=== PATIENT | female | born 1995 | race Hispanic/Latino ===

== ENCOUNTER 2019-02-12 22:39 | Emergency (ER) | payer MEDICARE, OTHER ==
[~2019-02-12] VITALS: Ht 160 cm; Wt 52.2 kg
--- OUTSIDE RECORDS SUMMARY | 2019-02-12 22:43 | XMS REPORT ---
Author Author [facility] Address Unknown Phone Unavailable Care Team Providers Care Public Health Aides Teacher Name Role Phone Unavailable Unavailable Payers Payer Name Policy Type Policy Number Effective Date Expiration Date Problems This patient has no known problems. Allergies, Adverse Reactions, Alerts Allergy Name Allergy Type Status Severity Reaction(s) Onset Date Inactive Date Treating Clinician Comments No Known Allergies DA Active U 2018-12-11 00:00:00 No Known Allergies DA Active U 2015-10-25 00:00:00 Medications This patient has no known medications. Results Test Description Test Time Test Comments Text Results Atomic Results Result Comments PLACENTA 2018-12-20 13:40:00 RUN DATE: 12/20/18 [facility] PAGE 1 RUN TIME: 1340 Specimen Inquiry RUN USER: INTERFACE PATIENT: DIANA GÓMEZ LOC: [facility] U #: [id number] AGE/SX: 23/F ROOM: DEISY RE12/14/18[facility] DR: Victorina Bates MD : 97 BED: A DIS: 12/15/18 STATUS: DIS Bong TLOC: SPEC #: [id number] RECD: 12/16/18 STATUS: SOUT RE #: [id number] ODILIA: 12/15/[address] [facility] [address]: Victorina Bates MD ENTERED: 12/16/18 SP TYPE: PLACENTA OTHR DR: ORDERED: GROSS PROCEDURES: GROSS (12/20/18) TISSUES: PLACENTA, NOS - AND PRODUCTS OF CONCEPTION CLINICAL HISTORY COLLECTION DATE: 12/15/2018 INTRAUTERINE DEMISE AT 18.4 WEEKS FINAL DIAGNOSIS Placenta and fetus, delivery: IMMATURE FETUS WITH AMBIGUOUS EXTERNAL GENITALIA AND MARKED POST MORTEM CHANGE/COMPRESSION APPROXIMATELY 14-15 WEEKS ESTIMATED GESTATIONAL AGE BY MEASUREMENTS 18.4 WEEKS ESTIMATED GESTATIONAL AGE BE DATES SECOND TRIMESTER PLACENTA WITH NO VILLITIS OR INFARCTION ARTIFACTUAL CHANGE AT SURFACE SUGGESTIVE OF CHORIOAMNIONITIS MEMBRANES WITH ARTIFACTUAL CHANGE SUGGESTIVE OF CHORIOAMNIONITIS UMBILICAL CORD WITH ACUTE INFLAMMATION AT SURFACE, POSSIBLE POST MORTEM CHANGE NEGATIVE FOR MALIGNANCY RRB/clarence D [id number], [id number] MACROSCOPIC The specimen is received without fixative in a container labeled with the patient's name and medical record number. Formalin is added. The specimen consists of a placenta with distorted fetus attached by umbilical cord. The placental portion measures 8 by up to 6.5 cm in diameter with a thickness up to 3.0 cm in trimmed weight of 109 grams. The remaining membrane tissue is pryor, opaque and inserts marginally. The surface is pryor and opaque in appearance. A segment of umbilical cord measuring 20.5 cm in length with a diameter up to 0.3 cm attaches between the surface of the placenta and the abdomen of the fetus. No knots are present within the cord. The cord is flattened. This appears to be post mortem change. No tight constrictions are CONTINUED ON NEXT PAGE RUN DATE: 12/20/18 [facility] PAGE 2 RUN TIME: 1340 Specimen Inquiry RUN USER: INTERFACE SPEC #: [id number] PATIENT: DIANA GÓMEZ #[id number] (Continued) MACROSCOPIC (Continued) identified within the cord segment. Hemorrhagic material attaches loosely to the maternal surface of the placenta. The maternal surface appears to be intact. The cut surface of the placenta is pink to pink-pryor and spongy with no focal lesions. The fetus is compressed and distorted related to post mortem change. The skull and abdomen are flattened. The fetus has a crown rump length of approximately 9 cm and foot length of 1.5 cm. The skin of the fetus is diffusely street-pryor and dull. Five digits are identified on each hand and foot. It is not possible to state with certainty that the face is normally formed due to the degree of compression. The external genitalia are difficult to see and are ambiguous in appearance. No obvious lesion is seen along the spine or the abdominal wall. No sections of the fetus are submitted. Section Code: 1A-1C, construction representative sections of placenta. GROSS PERFORMED AT [facility] [address] [place] [address] [phone] MICROSCOPIC All of the stains, including any controls performed, stain appropriately. MICROSCOPIC PERFORMED AT [facility] [address] [place] [address] [phone])[phone] PERFORMING SITE Diagnosis performed at: [facility], [address] [place] [address] Signed SIGNATURE ON FILE Zack Lyn MD 12/20/18 1340 END OF REPORT CBC W/AUTO DIFF 2018-12-15 11:57:00 WHITE BLOOD CELL (test code=WBC) 10.4 K/mm3 4.5-12.5 RED BLOOD CELL (test code=RBC) 2.13 mill/mm3 3.7-5.2 HEMOGLOBIN (test code=HGB) 7.0 gram/dL 11.5-15.5 RESULT VERIFIED BY REPEAT ANALYSIS HEMATOCRIT (test code=HCT) 21.5 % 36.0-46.0 Results called to [id number] by ETHAN 12/15/18 1156Critical results verified and read back by Nurse? Y MEAN CELL VOLUME (test code=MCV) 100.9 fL 80-98 MEAN CELL HGB (test code=MCH) 32.9 picogram 27.0-33.0 MEAN CELL HGB CONCETRATION (test code=MCHC) 32.6 gram/dL 33.0-36.0 RED CELL DISTRIBUTION WIDTH (test code=RDW) 13.0 % 11.6-16.2 RED CELL DISTRIBUTION WIDTH SD (test code=RDW-SD) 47.8 fL 37.0-51.0 PLATELET COUNT (test code=PLT) 227 K/mm3 150-450 RESULT VERIFIED BY REPEAT ANALYSIS MEAN PLATELET VOLUME (test code=MPV) 10.6 fL 6.7-11.0 NEUTROPHIL % (test code=NT%) 81.1 % 39.0-69.0 IMMATURE GRANULOCYTE % (test code=IG%) 0.6 % 0.0-5.0 LYMPHOCYTE % (test code=LY%) 13.0 % 25.0-55.0 MONOCYTE % (test code=MO%) 5.0 % 0.0-10.0 EOSINOPHIL % (test code=EO%) 0.1 % 0.0-5.0 BASOPHIL % (test code=BA%) 0.2 % 0.0-1.0 NUCLEATED RBC % (test code=NRBC%) 0.0 % 0-0 NEUTROPHIL # (test code=NT#) 8.46 K/mm3 1.8-7.7 IMMATURE GRANULOCYTE # (test code=IG#) 0.06 x10 3/uL 0-0.03 LYMPHOCYTE # (test code=LY#) 1.36 K/mm3 1.0-5.0 MONOCYTE # (test code=MO#) 0.52 K/mm3 0-0.8 EOSINOPHIL # (test code=EO#) 0.01 K/mm3 0.0-0.5 BASOPHIL # (test code=BA#) 0.02 K/mm3 0.0-0.2 NUCLEATED RBC # (test code=NRBC#) 0.00 K/mm3 0.0-0.1 AG HEPAT B [id number] 03:48:00* Test Item Value Reference Range Comments AG HEPAT B SURF (test code=HBSAG) Nonreactive Index Nonreactive AB RUBELLA [id number] 03:48:00* Test Item Value Reference Range Comments AB RUBELLA IGG (test code=RUBGAB) Positive IUnit/mL <5.0=Neg IU/ML INTERPRETATION OF SERUM RUBELLA-IGG AB --------- < 5.0 NEGATIVE - NO RUBELLA IGG ANTIBODY DETECTED5.0-9.9 EQUIVOCAL>=10.0 POSITIVE - RUBELLA IGG ANTIBODY DETECTED AB [id number] 03:48:00* Test Item Value Reference Range Comments AB TREPONEMA (test code=TREPAB) Nonreactive Index NonReactive HIV 1 2 COMBO AG/AB [id number] 03:48:00* Test Item Value Reference Range Comments HIV 1 2 COMBO AG/AB SCREEN (test code=[id number]) AB/AG NON REACTIVE NONREACTIVE NONREACTIVE HIV P24 ANTIGEN NONREACTIVE NONREACTIVE HIV 1&2 ANTIBODY NONREACTIVE THE HIV-1 P24 TEST HELPS DISTINGUISH ACUTE HIV- 1INFECTIONFROM ESTABLISHED HIV-1 INFECTION WHEN THE SPECIMEN ISPOSITIVE FOR HIV- 1 P24 ANTIGEN. HIV-1 P24 ANTIGEN IS HIGHEST IN THE FIRST FEW WEEKS AFTERINFECTION AG HEPAT B [id number] 20:51:00* Test Item Value Reference Range Comments AG HEPAT B SURF (test code=HBSAG) Nonreactive Index Nonreactive AB RUBELLA [id number] 20:51:00* Test Item Value Reference Range Comments AB RUBELLA IGG (test code=RUBGAB) Positive IUnit/mL <5.0=Neg IU/ML INTERPRETATION OF SERUM RUBELLA-IGG AB --------- < 5.0 NEGATIVE - NO RUBELLA IGG ANTIBODY DETECTED5.0-9.9 EQUIVOCAL>=10.0 POSITIVE - RUBELLA IGG ANTIBODY DETECTED AB [id number] 20:51:00* Test Item Value Reference Range Comments AB TREPONEMA (test code=TREPAB) Nonreactive Index NonReactive HIV 1 2 COMBO AG/AB [id number] 20:51:00* Test Item Value Reference Range Comments HIV 1 2 COMBO AG/AB SCREEN (test code=[id number]) NONREACTIVE URINALYSIS [id number] 20:50:00* Test Item Value Reference Range Comments UA COLOR (test code=COLU) BLOODY YELLOW UA APPEARANCE (test code=APPU) BLOODY CLEAR UA GLUCOSE DIPSTICK (test code=DGLUU) NEGATIVE mg/dL NEGATIVE UA BILIRUBIN DIPSTICK (test code=BILU) NEGATIVE NEGATIVE UA KETONE DIPSTICK (test code=KETU) 150 (4+) mg/dL NEGATIVE UA SPECIFIC GRAVITY (test code=SGU) 1.020 1.001-1.035 UA BLOOD DIPSTICK (test code=CHAZ) 3+ (Large) NEGATIVE UA PH DIPSTICK (test code=WALKER) 6.5 5.0-8.0 UA PROTEIN DIPSTICK (test code=PROU) >=300 (3+) mg/dL Neg-15 UA UROBILINIOGEN DIPSTICK (test code=URO) 1 mg/dL (1+) mg/dL 0.0-0.2 UA NITRITE DIPSTICK (test code=JUS) NEGATIVE NEGATIVE Previously reported result: POSITIVE Edited by: CHELE on 12/14/18:204 UA LEUKOCYTE ESTERASE W REFLEX (test code=LEUUR) 2+ NEGATIVE UA WBC (test code=WBCU) 0-5 per HPF 0-5 UA RBC (test code=RBCU) TNTC per HPF 0-5 UA EPITHELIAL CELLS (test code=EPIU) None seen per HPF Few UA BACTERIA (test code=BACU) TRACE per HPF NONE COMPREHENSIVE METABOLIC [id number] 20:30:00* Test Item Value Reference Range Comments SODIUM (test code=NA) 139 mmol/L 136-145 POTASSIUM (test code=K) 3.1 mmol/L 3.5-5.1 CHLORIDE (test code=CL) 106.0 mmol/L 98-107 CARBON DIOXIDE (test code=CO2) 25.0 mmol/L 21-32 ANION GAP (test code=GAP) 11.1 10-20 GLUCOSE (test code=GLU) 111 mg/dL 74-106 BLOOD UREA NITROGEN (test code=BUN) 6 mg/dL 7-18 GLOMERULAR FILTRATION RATE (test code=GFR) > 60 mL/min >=60 Estimated GFR by using Modified MDRD formula.Chronic kidney disease is defined as either kidney damageor GFR <60 mL/min/1.73 m2 for >3 months. CREATININE (test code=CREAT) 0.50 mg/dL 0.55-1.02 Note change in reference range due to change in reagent. BUN/CREATININE RATIO (test code=BUN/CREA) 12.4 10-20 TOTAL PROTEIN (test code=PROT) 6.6 gram/dL 6.4-8.2 ALBUMIN (test code=ALB) 3.0 g/dL 3.4-5.0 GLOBULIN (test code=GLOB) 3.6 gram/dL 2.7-4.2 ALBUMIN/GLOBULIN RATIO (test code=A/G) 0.8 0.75-1.50 CALCIUM (test code=CA) 8.6 mg/dL 8.5-10.1 BILIRUBIN TOTAL (test code=BILT) 0.20 mg/dL 0.0-1.0 SGOT/AST (test code=AST) 9 IUnit/L 15-37 SGPT/ALT (test code=ALT) 8 IUnit/L 12-78 ALKALINE PHOSPHATASE TOTAL (test code=ALKP) 67 IUnit/L 45-117 Note change in reference range due to change in reagent. URINALYSIS [id number] 20:29:00* Test Item Value Reference Range Comments UA COLOR (test code=COLU) BLOODY YELLOW UA APPEARANCE (test code=APPU) BLOODY CLEAR UA GLUCOSE DIPSTICK (test code=DGLUU) NEGATIVE mg/dL NEGATIVE UA BILIRUBIN DIPSTICK (test code=BILU) NEGATIVE NEGATIVE UA KETONE DIPSTICK (test code=KETU) 150 (4+) mg/dL NEGATIVE UA SPECIFIC GRAVITY (test code=SGU) 1.020 1.001-1.035 UA BLOOD DIPSTICK (test code=CHAZ) 3+ (Large) NEGATIVE UA PH DIPSTICK (test code=WALKER) 6.5 5.0-8.0 UA PROTEIN DIPSTICK (test code=PROU) >=300 (3+) mg/dL Neg-15 UA UROBILINIOGEN DIPSTICK (test code=URO) 1 mg/dL (1+) mg/dL 0.0-0.2 UA NITRITE DIPSTICK (test code=JUS) POSITIVE NEGATIVE UA LEUKOCYTE ESTERASE W REFLEX (test code=LEUUR) 2+ NEGATIVE UA WBC (test code=WBCU) per HPF 0-5 UA RBC (test code=RBCU) per HPF 0-5 UA EPITHELIAL CELLS (test code=EPIU) per HPF Few UA BACTERIA (test code=BACU) per HPF NONE URINALYSIS [id number] 20:28:00* Test Item Value Reference Range Comments UA COLOR (test code=COLU) BLOODY YELLOW UA APPEARANCE (test code=APPU) BLOODY CLEAR UA GLUCOSE DIPSTICK (test code=DGLUU) NEGATIVE mg/dL NEGATIVE UA BILIRUBIN DIPSTICK (test code=BILU) NEGATIVE NEGATIVE UA KETONE DIPSTICK (test code=KETU) 150 (4+) mg/dL NEGATIVE UA SPECIFIC GRAVITY (test code=SGU) 1.020 1.001-1.035 UA BLOOD DIPSTICK (test code=CHAZ) 3+ (Large) NEGATIVE UA PH DIPSTICK (test code=WALKER) 6.5 5.0-8.0 UA PROTEIN DIPSTICK (test code=PROU) >=300 (3+) mg/dL Neg-15 UA UROBILINIOGEN DIPSTICK (test code=URO) 1 mg/dL (1+) mg/dL 0.0-0.2 UA NITRITE DIPSTICK (test code=JUS) POSITIVE NEGATIVE UA LEUKOCYTE ESTERASE W REFLEX (test code=LEUUR) 2+ NEGATIVE UA WBC (test code=WBCU) per HPF 0-5 UA RBC (test code=RBCU) per HPF 0-5 UA EPITHELIAL CELLS (test code=EPIU) per HPF Few UA BACTERIA (test code=BACU) per HPF NONE COMPREHENSIVE METABOLIC [id number] 20:26:00* Test Item Value Reference Range Comments SODIUM (test code=NA) 139 mmol/L 136-145 POTASSIUM (test code=K) 3.1 mmol/L 3.5-5.1 CHLORIDE (test code=CL) 106.0 mmol/L 98-107 CARBON DIOXIDE (test code=CO2) mmol/L 21-32 ANION GAP (test code=GAP) 10-20 GLUCOSE (test code=GLU) mg/dL 74-106 BLOOD UREA NITROGEN (test code=BUN) mg/dL 7-18 GLOMERULAR FILTRATION RATE (test code=GFR) mL/min >=60 CREATININE (test code=CREAT) mg/dL 0.55-1.02 BUN/CREATININE RATIO (test code=BUN/CREA) 10-20 TOTAL PROTEIN (test code=PROT) gram/dL 6.4-8.2 ALBUMIN (test code=ALB) g/dL 3.4-5.0 GLOBULIN (test code=GLOB) gram/dL 2.7-4.2 ALBUMIN/GLOBULIN RATIO (test code=A/G) 0.75-1.50 CALCIUM (test code=CA) mg/dL 8.5-10.1 BILIRUBIN TOTAL (test code=BILT) mg/dL 0.0-1.0 SGOT/AST (test code=AST) IUnit/L 15-37 SGPT/ALT (test code=ALT) IUnit/L 12-78 ALKALINE PHOSPHATASE TOTAL (test code=ALKP) IUnit/L 45-117 CBC W/AUTO [id number] 20:14:00* Test Item Value Reference Range Comments WHITE BLOOD CELL (test code=WBC) 20.4 K/mm3 4.5-12.5 RED BLOOD CELL (test code=RBC) 2.75 mill/mm3 3.7-5.2 HEMOGLOBIN (test code=HGB) 9.0 gram/dL 11.5-15.5 HEMATOCRIT (test code=HCT) 27.2 % 36.0-46.0 MEAN CELL VOLUME (test code=MCV) 98.9 fL 80-98 MEAN CELL HGB (test code=MCH) 32.7 picogram 27.0-33.0 MEAN CELL HGB CONCETRATION (test code=MCHC) 33.1 gram/dL 33.0-36.0 RED CELL DISTRIBUTION WIDTH (test code=RDW) 12.8 % 11.6-16.2 RED CELL DISTRIBUTION WIDTH SD (test code=RDW-SD) 46.1 fL 37.0-51.0 PLATELET COUNT (test code=PLT) 314 K/mm3 150-450 MEAN PLATELET VOLUME (test code=MPV) 10.7 fL 6.7-11.0 NEUTROPHIL % (test code=NT%) 87.1 % 39.0-69.0 IMMATURE GRANULOCYTE % (test code=IG%) 1.1 % 0.0-5.0 LYMPHOCYTE % (test code=LY%) 8.3 % 25.0-55.0 MONOCYTE % (test code=MO%) 3.3 % 0.0-10.0 EOSINOPHIL % (test code=EO%) 0.0 % 0.0-5.0 BASOPHIL % (test code=BA%) 0.2 % 0.0-1.0 NUCLEATED RBC % (test code=NRBC%) 0.0 % 0-0 NEUTROPHIL # (test code=NT#) 17.72 K/mm3 1.8-7.7 IMMATURE GRANULOCYTE # (test code=IG#) 0.23 x10 3/uL 0-0.03 LYMPHOCYTE # (test code=LY#) 1.69 K/mm3 1.0-5.0 MONOCYTE # (test code=MO#) 0.68 K/mm3 0-0.8 EOSINOPHIL # (test code=EO#) 0.01 K/mm3 0.0-0.5 BASOPHIL # (test code=BA#) 0.05 K/mm3 0.0-0.2 NUCLEATED RBC # (test code=NRBC#) 0.00 K/mm3 0.0-0.1 MANUAL DIFF REQUIRED (test code=MDIFF) NO - US [id number] 19:15:00 Name: DIANA GÓMEZ [facility] : 1995 Age/S: 23 / F [address] [facility] Unit #: [id number] Loc: [place] [address] Phys: Victorina Bates MD Acct: [id number] Dis Date: Status: ADM IN PHONE #: [phone] Exam Date: 12/14/2018 1840 FAX #: [phone] Reason: HEART TONES EXAMS: CPT CODE: [id number] [place] LTD [id number] REASON FOR EXAM: HEART TONES EXAM ORDER DATE: 12/14/2018 6:13 PM Attending M.D.: Victorina Bates MD PROCEDURE: - US LTD FINDINGS: A nonviable IUP noted. Fetus is in breech presentation with the head and the lower uterine segment and the body and spine at the cervix region. No heart tone detected. No amniotic fluid noted. IMPRESSION: A single nonviable IUP with body and spine locate at the cervix. at 1915 Reported and signed by: Darinel Rivera M.D. CC: Victorina Bates MD Technologist: MARINO HATCH RT(R),RDMS Trnhib Date/Time: 12/14/2018 (1914) [email or web address] Orig Print D/T: S: 12/14/2018 (1917) Probe: PAGE 1 Signed Report URINALYSIS [id number] 09:04:00* Test Item Value Reference Range Comments UA COLOR (test code=COLU) Light-Yellow YELLOW UA APPEARANCE (test code=APPU) CLEAR CLEAR UA GLUCOSE DIPSTICK (test code=DGLUU) NEGATIVE mg/dL NEGATIVE UA BILIRUBIN DIPSTICK (test code=BILU) NEGATIVE mg/dL NEGATIVE UA KETONE DIPSTICK (test code=KETU) NEGATIVE mg/dL NEGATIVE UA SPECIFIC GRAVITY (test code=SGU) 1.019 1.001-1.035 UA BLOOD DIPSTICK (test code=CHAZ) 0.5 mg/dL (2+) mg/dL NEGATIVE UA PH DIPSTICK (test code=WALKER) 6.0 5.0-8.0 UA PROTEIN DIPSTICK (test code=PROU) NEGATIVE mg/dL NEGATIVE UA UROBILINIOGEN DIPSTICK (test code=URO) Normal mg/dL NEGATIVE UA NITRITE DIPSTICK (test code=JUS) NEGATIVE NEGATIVE UA LEUKOCYTE ESTERASE W REFLEX (test code=LEUUR) NEGATIVE Jeanie/uL NEGATIVE UA WBC (test code=WBCU) 0-5 per HPF 0-5 UA RBC (test code=RBCU) 21-50 #/HPF 0-5 UA EPITHELIAL CELLS (test code=EPIU) FEW per HPF FEW UA BACTERIA (test code=BACU) FEW #/HPF NONE UA MUCUS (test code=MUCU) FEW #/LPF FEW Urine Source? Clean CatchBASIC METABOLIC [id number] 08:52:00* Test Item Value Reference Range Comments SODIUM (test code=NA) 139 mmol/L 136-145 POTASSIUM (test code=K) 3.3 mmol/L 3.5-5.1 CHLORIDE (test code=CL) 105.0 mmol/L 98-107 CARBON DIOXIDE (test code=CO2) 25.0 mmol/L 21-32 ANION GAP (test code=GAP) 12.3 10-20 GLUCOSE (test code=GLU) 100 mg/dL 74-106 BLOOD UREA NITROGEN (test code=BUN) 7 mg/dL 7-18 GLOMERULAR FILTRATION RATE (test code=GFR) > 60 mL/min >=60 Estimated GFR by using Modified MDRD formula.Chronic kidney disease is defined as either kidney damageor GFR <60 mL/min/1.73 m2 for >3 months. CREATININE (test code=CREAT) 0.60 mg/dL 0.55-1.02 Note change in reference range due to change in reagent. BUN/CREATININE RATIO (test code=BUN/CREA) 12.3 10-20 CALCIUM (test code=CA) 9.0 mg/dL 8.5-10.1 HCG SERUM [id number] 08:52:00* Test Item Value Reference Range Comments HCG SERUM BETA (test code=HCG) 1827.0 mIU/mL 0-3 Interfering substances present in the serum of somepatients may cause a false-positive result in this assay.Questionable elevations in serum hCG should be confirmedwith a urine hCG. Suspected Trophoblastic Neoplasms shouldnot be diagnosed based on serun hCG/beta hCG alone. Theymust be confirmed by clinical history and tissue diagnosis.INTERPRETATION:B-HCG LEVELS <5 SHOULD BE CONSIDERED "NEGATIVE." *WHEN BODERLINE RESULTS ARE ENCOUNTERED,PATIENT SAMPLESSHOULD BE REDRAWN 48 HOURS. 0-1 WEEKS AFTER CONCEPTION 5-50 MIU/ML1-2 WEEKS AFTER CONCEPTION 50-500 MIU/ML2-3 WEEKS AFTER CONCEPTION 100 -5,000 MIU/ML3-4 WEEKS AFTER CONCEPTION 500-10,000 MIU/ML4-5 WEEKS AFTER CONCEPTION 1000 -50,000 MIU/ML5-6 WEEKS AFTER CONCEPTION 10,000-100,000 MIU/ML6-8 WEEKS AFTER CONCEPTION 15,000- 200,000 MIU/ML2-3 MONTHS AFTER CONCEPTION 10,000-100,000 MIU/ML BASIC METABOLIC [id number] 08:29:00* Test Item Value Reference Range Comments SODIUM (test code=NA) 139 mmol/L 136-145 POTASSIUM (test code=K) 3.3 mmol/L 3.5-5.1 CHLORIDE (test code=CL) 105.0 mmol/L 98-107 CARBON DIOXIDE (test code=CO2) mmol/L 21-32 ANION GAP (test code=GAP) 10-20 GLUCOSE (test code=GLU) mg/dL 74-106 BLOOD UREA NITROGEN (test code=BUN) mg/dL 7-18 GLOMERULAR FILTRATION RATE (test code=GFR) mL/min >=60 CREATININE (test code=CREAT) mg/dL 0.55-1.02 BUN/CREATININE RATIO (test code=BUN/CREA) 10-20 CALCIUM (test code=CA) mg/dL 8.5-10.1 HCG SERUM [id number] 08:29:00* Test Item Value Reference Range Comments HCG SERUM BETA (test code=HCG) mIU/mL 0-3 CBC W/O [id number] 08:11:00* Test Item Value Reference Range Comments WHITE BLOOD CELL (test code=WBC) 12.5 K/mm3 4.5-12.5 RED BLOOD CELL (test code=RBC) 3.30 mill/mm3 3.7-5.2 HEMOGLOBIN (test code=HGB) 10.6 gram/dL 11.5-15.5 HEMATOCRIT (test code=HCT) 32.8 % 36.0-46.0 MEAN CELL VOLUME (test code=MCV) 99.4 fL 80-98 MEAN CELL HGB (test code=MCH) 32.1 picogram 27.0-33.0 MEAN CELL HGB CONCETRATION (test code=MCHC) 32.3 gram/dL 33.0-36.0 RED CELL DISTRIBUTION WIDTH (test code=RDW) 13.1 % 11.6-16.2 PLATELET COUNT (test code=PLT) 372 K/mm3 150-450 MEAN PLATELET VOLUME (test code=MPV) 10.8 fL 6.7-11.0 URINALYSIS [id number] 15:52:00* Test Item Value Reference Range Comments UA COLOR (test code=COLU) YELLOW YELLOW UA APPEARANCE (test code=APPU) CLEAR CLEAR UA GLUCOSE DIPSTICK (test code=DGLUU) NEGATIVE mg/dL NEGATIVE UA BILIRUBIN DIPSTICK (test code=BILU) NEGATIVE NEGATIVE UA KETONE DIPSTICK (test code=KETU) 3+ mg/dL NEGATIVE UA SPECIFIC GRAVITY (test code=SGU) 1.025 1.001-1.035 UA BLOOD DIPSTICK (test code=CHAZ) TRACE NEGATIVE UA PH DIPSTICK (test code=WALKER) 6.0 5.0-8.0 UA PROTEIN DIPSTICK (test code=PROU) TRACE (15) mg/dL Neg-15 UA UROBILINIOGEN DIPSTICK (test code=URO) 0.2 mg/dL 0.0-0.2 UA NITRITE DIPSTICK (test code=JUS) NEGATIVE NEGATIVE UA LEUKOCYTE ESTERASE W REFLEX (test code=LEUUR) NEGATIVE NEGATIVE UA WBC (test code=WBCU) per HPF 0-5 UA RBC (test code=RBCU) per HPF 0-5 UA EPITHELIAL CELLS (test code=EPIU) per HPF Few UA BACTERIA (test code=BACU) per HPF NONE Urine Source? Clean CatchURINALYSIS [id number] 15:52:00* Test Item Value Reference Range Comments UA COLOR (test code=COLU) YELLOW YELLOW UA APPEARANCE (test code=APPU) CLEAR CLEAR UA GLUCOSE DIPSTICK (test code=DGLUU) NEGATIVE mg/dL NEGATIVE UA BILIRUBIN DIPSTICK (test code=BILU) NEGATIVE NEGATIVE UA KETONE DIPSTICK (test code=KETU) 3+ mg/dL NEGATIVE UA SPECIFIC GRAVITY (test code=SGU) 1.025 1.001-1.035 UA BLOOD DIPSTICK (test code=CHAZ) TRACE NEGATIVE UA PH DIPSTICK (test code=WALKER) 6.0 5.0-8.0 UA PROTEIN DIPSTICK (test code=PROU) TRACE (15) mg/dL Neg-15 UA UROBILINIOGEN DIPSTICK (test code=URO) 0.2 mg/dL 0.0-0.2 UA NITRITE DIPSTICK (test code=JUS) NEGATIVE NEGATIVE UA LEUKOCYTE ESTERASE W REFLEX (test code=LEUUR) NEGATIVE NEGATIVE UA WBC (test code=WBCU) 0-5 per HPF 0-5 UA RBC (test code=RBCU) 3-5 #/HPF 0-5 UA EPITHELIAL CELLS (test code=EPIU) FEW per HPF FEW UA BACTERIA (test code=BACU) NONE SEEN #/HPF NONE UA MUCUS (test code=MUCU) MANY #/LPF FEW Urine Source? Clean Catch- US PREG AFTER [id number] 15:38:00 Name: DIANA GÓMEZ [facility] : 1995 Age/S: 23 / F [address] Unit #: [id number] Loc: [place] [id number] Phys: Emma Condon NP Acct: [id number] Di s Date: Status: REG ER PHONE #: Exam Date: 11/13/2018 1455 FAX #: Reason: VAGINAL BLEEDING/PELVIC PAIN EXAMS: CPT CODE: [id number] US PREG AFTER 37510 REASON FOR EXAM: PELVIC P AIN EXAM ORDER DATE: 11/13/2018 1:50 PM Attending M.D .: Jennifer Condon NP PROCEDURE: - DUP AB/PEL/SC COMP, - US PREG AF TER TRI Technique: Grayscale images of the uterus and ovaries were obtained utilizing A transabdominal and transvaginal approach. Color Doppler and spectral Doppler images of the ovaries were also obtain ed on transvaginal images. Comparison study:None FIN DINGS: The transabdominal ultrasound shows the uterus measured 11 .5 x 10.9 x 11.7 cm. Intrauterine is present. Feta l crown-rump length measures 7.68 cm corresponding to an age of 13 weeks a nd 5 days. heart rate measures 144 bpm. No subchorionic hemorrhages seen. The right ovary was not clearly visualized. The left o vary measured 3.5 x 2.0 x 3.0 cm. The left ovary is sonographically unrema rkable and demonstrates normal flow. No fluid seen in the cul-de-s ac. IMPRESSION: Viable intrauterine with estimated gestational age of 13 weeks and 5 days. Elect ronically Signed by Markie Burr MD on 11/13/2018 at 1538 Reported and signed by: Markie Burr MD CC: Jennifer Condon NP Technologist: MOISES CASTLE Trnscb Date/Time: 11/13/2018 (1538) [id number] Orig Print D/T: S: 11/13/2018 (3553) Probe: PAGE 1 Signed Report - DUP AB/PEL/SC [id number] 15:38:00 Name: DIANA GÓMEZ [facility] : 1995 Age/S: 23 / F [facility] Unit #: [id number] Loc: [place] [id number] Phys: Jennifer Condon NP Acct: [id number] Dis Date: Status: REG ER PHONE #: [phone] Exam Date: 11/13/2018 0081 FAX #: [phone] Reason: PELVIC PAIN EXAMS: CPT CODE: [id number] DUP AB/PEL/SC COMP [id number] REASON FOR EXAM: PELVIC PAIN EXAM ORDER DATE: 11/13/2018 1:50 PM Attending MKermitDKermit: Jennifer Condon NP PROCEDURE: - DUP AB/PEL/SC COMP, - US PREG AFTER 1ST TRI Technique: Grayscale images of the uterus and ovaries were obtained utilizing A transabdominal and transvaginal approach. Color Doppler and spectral Doppler images of the ovaries were also obtained on transvaginal images. Comparison study:None FINDINGS: The transabdominal ultrasound shows the uterus measured 11.5 x 10.9 x 11.7 cm. Intrauterine is present. crown-rump length measures 7.68 cm corresponding to an age of 13 weeks and 5 days. heart rate measures 144 bpm. No subchorionic hemorrhages seen. The right ovary was not clearly visualized. The left ovary measured 3.5 x 2.0 x 3.0 cm. The left ovary is sonographically unremarkable and demonstrates normal flow. No fluid seen in the cul-de-sac. IMPRESSION: Viable intrauterine with estimated gestational age of 13 weeks and 5 days. at 1538 Reported and signed by: Markie Burr MD CC: Jennifer Condon NP Technologist: MOISES CASTLE Trnscb Date/Time: 11/13/2018 (3117) [id number] Orig Print D/T: S: 11/13/2018 (8027) Probe: PAGE 1 Signed Report BASIC METABOLIC [id number] 14:43:00* Test Item Value Reference Range Comments SODIUM (test code=NA) 135 mmol/L 136-145 POTASSIUM (test code=K) 3.4 mmol/L 3.5-5.1 CHLORIDE (test code=CL) 102.0 mmol/L 98-107 CARBON DIOXIDE (test code=CO2) 26.0 mmol/L 21-32 ANION GAP (test code=GAP) 10.4 10-20 GLUCOSE (test code=GLU) 91 mg/dL 74-106 BLOOD UREA NITROGEN (test code=BUN) 7 mg/dL 7-18 GLOMERULAR FILTRATION RATE (test code=GFR) > 60 mL/min >=60 Estimated GFR by using Modified MDRD formula.Chronic kidney disease is defined as either kidney damageor GFR <60 mL/min/1.73 m2 for >3 months. CREATININE (test code=CREAT) 0.70 mg/dL 0.55-1.02 Note change in reference range due to change in reagent. BUN/CREATININE RATIO (test code=BUN/CREA) 10.0 10-20 CALCIUM (test code=CA) 9.2 mg/dL 8.5-10.1 HCG SERUM [id number] 14:43:00* Test Item Value Reference Range Comments HCG SERUM BETA (test code=HCG) 66812.0 mIU/mL 0-3 Interfering substances present in the serum of somepatients may cause a false-positive result in this assay.Questionable elevations in serum hCG should be confirmedwith a urine hCG. Suspected Trophoblastic Neoplasms shouldnot be diagnosed based on serun hCG/beta hCG alone. Theymust be confirmed by clinical history and tissue diagnosis.INTERPRETATION:B-HCG LEVELS <5 SHOULD BE CONSIDERED "NEGATIVE." *WHEN BODERLINE RESULTS ARE ENCOUNTERED,PATIENT SAMPLESSHOULD BE REDRAWN 48 HOURS. 0-1 WEEKS AFTER CONCEPTION 5-50 MIU/ML1-2 WEEKS AFTER CONCEPTION 50-500 MIU/ML2-3 WEEKS AFTER CONCEPTION 100 -5,000 MIU/ML3-4 WEEKS AFTER CONCEPTION 500-10,000 MIU/ML4-5 WEEKS AFTER CONCEPTION 1000 -50,000 MIU/ML5-6 WEEKS AFTER CONCEPTION 10,000-100,000 MIU/ML6-8 WEEKS AFTER CONCEPTION 15,000- 200,000 MIU/ML2-3 MONTHS AFTER CONCEPTION 10,000-100,000 MIU/ML BASIC METABOLIC [id number] 14:19:00* Test Item Value Reference Range Comments SODIUM (test code=NA) 135 mmol/L 136-145 POTASSIUM (test code=K) 3.4 mmol/L 3.5-5.1 CHLORIDE (test code=CL) 102.0 mmol/L 98-107 CARBON DIOXIDE (test code=CO2) mmol/L 21-32 ANION GAP (test code=GAP) 10-20 GLUCOSE (test code=GLU) mg/dL 74-106 BLOOD UREA NITROGEN (test code=BUN) mg/dL 7-18 GLOMERULAR FILTRATION RATE (test code=GFR) mL/min >=60 CREATININE (test code=CREAT) mg/dL 0.55-1.02 BUN/CREATININE RATIO (test code=BUN/CREA) 10-20 CALCIUM (test code=CA) mg/dL 8.5-10.1 HCG SERUM [id number] 14:19:00* Test Item Value Reference Range Comments HCG SERUM BETA (test code=HCG) mIU/mL 0-3 CBC W/O [id number] 14:07:00* Test Item Value Reference Range Comments WHITE BLOOD CELL (test code=WBC) 18.6 K/mm3 4.5-12.5 RED BLOOD CELL (test code=RBC) 3.21 mill/mm3 3.7-5.2 HEMOGLOBIN (test code=HGB) 10.5 gram/dL 11.5-15.5 HEMATOCRIT (test code=HCT) 31.7 % 36.0-46.0 MEAN CELL VOLUME (test code=MCV) 98.8 fL 80-98 MEAN CELL HGB (test code=MCH) 32.7 picogram 27.0-33.0 MEAN CELL HGB CONCETRATION (test code=MCHC) 33.1 gram/dL 33.0-36.0 RED CELL DISTRIBUTION WIDTH (test code=RDW) 12.3 % 11.6-16.2 PLATELET COUNT (test code=PLT) 260 K/mm3 150-450 MEAN PLATELET VOLUME (test code=MPV) 10.6 fL 6.7-11.0
[2019-02-12] MEDS ORDERED: ONDANSETRON HCL INJ 2MG/ML 2ML 2 MG/ML VIAL IV STA (23:15)
[2019-02-12 23:59] LABS: BASOPHILS % 0.5 % (0.0-1.0); EOSINOPHILS % 0.5 % (0.0-6.0); HEMATOCRIT 31.5 % (34.2-44.1); HEMOGLOBIN 9.6 g/dL (12.0-16.0); LYMPHOCYTES # (AUTO) 3.9 (1.0-3.2); LYMPHOCYTES % 46.4 % (18.0-39.1); MEAN CORPUSCULAR HEMOGLOBIN 26.8 pg (28-32); MEAN CORPUSCULAR HGB CONC 30.5 g/dL (31-35); MONOCYTES # (AUTO) 0.7 (0.2-0.8); MONOCYTES % 7.7 % (4.4-11.3); NEUTROPHILS # (AUTO) 3.8 (2.1-6.9); NEUTROPHILS % 44.7 % (38.7-80.0); PLATELET COUNT 471 x10e3/uL (140-360); RED BLOOD COUNT 3.58 x10e6/uL (3.6-5.1); RED CELL DISTRIBUTION WIDTH 15.5 % (11.7-14.4)
[2019-02-13 00:10] LABS: BILIRUBIN,URINE NEGATIVE (NEGATIVE); CLARITY,URINE SL CLOUDY (CLEAR); COLOR,URINE YELLOW (YELLOW); KETONES,URINE NEGATIVE (NEGATIVE); LEUKOCYTE ESTERASE ,URINE LARGE (NEGATIVE); NITRITE,URINE NEGATIVE (NEGATIVE); PROTEIN,URINE DIPSTICK NEGATIVE (NEGATIVE); URINE UROBILINOGEN 0.2 mg/dL (0.2 - 1)
[2019-02-13 00:15] LABS: ANION GAP 15.1 mmol/L (8-16); BLOOD UREA NITROGEN 13 mg/dL (7-26); BUN/CREATININE RATIO 16 (6-25); CALCIUM 10.4 mg/dL (8.4-10.2); CARBON DIOXIDE 24 mmol/L (22-29); CHLORIDE 103 mmol/L (98-107); EST GLOMERULAR FILTRATION RATE > 60 ML/MIN (60-); GLUCOSE 101 mg/dL (74-118); POTASSIUM 3.1 mmol/L (3.5-5.1); SODIUM 139 mmol/L (136-145)
[2019-02-13 00:16] LABS: PREGNANCY TEST, URINE NEGATIVE (NEGATIVE)
[2019-02-13 00:17] LABS: AMPHETAMINES SCREEN,URINE NEGATIVE (NEGATIVE); BENZODIAZEPINES SCREEN,URINE NEGATIVE (NEGATIVE); PHENCYCLIDINE SCREEN,URINE NEGATIVE (NEGATIVE)
[2019-02-13 00:27] LABS: BACTERIA,URINE MANY /HPF; EPITHELIAL CELLS,URINE MANY /LPF; WBC,URINE (MAN) >50 /HPF (0-5)
--- NOTE | 2019-02-13 00:59 | Diagnostic Imaging Report ---
EXAMINATION: CHEST 2 VIEWS INDICATION: CHEST PAIN COMPARISON: None FINDINGS: TUBES and LINES: None. LUNGS: Lungs are well inflated. Minimal perihilar, peribronchial thickening and perihilar streaky densities may reflect viral infection versus reactive airway disease. There is no evidence of pneumonia or pulmonary edema. PLEURA: No pleural effusion or pneumothorax. HEART AND MEDIASTINUM: The cardiomediastinal silhouette is unremarkable. BONES AND SOFT TISSUES: No acute osseous lesion. Soft tissues are unremarkable. UPPER ABDOMEN: No free air under the diaphragm. IMPRESSION: Minimal bilateral peribronchial thickening. No consolidation. Signed by: Dr. Ronda Kerr M.D. on 02/13/2019 12:55 AM
[2019-02-13 01:06] VITALS: BP 119/59
== END 2019-02-13 01:32 | disposition home or self-care (01) ==
LOC: ER 22:39
DX: R07.89 Other chest pain (principal); N30.90 Cystitis, unspecified without hematuria; F41.9 Anxiety disorder, unspecified
CPT/HCPCS: 36415; 71046; 80048; 80307; 81001; 81025; 85025; 85379; 93005; 99283; J2405